=== PATIENT | male | born 1945 | race African-American/Black ===

== ENCOUNTER 2016-11-15 17:00 | Emergency (ER) | payer BC, OTHER ==
[~2016-11-15] VITALS: Ht 172.7 cm; Wt 95.0 kg
[~2016-11-15 17:00] MED LIST: ASPI81TA82 PO; ATEN-102 PO; METF1000 PO; METF500 PO
[2016-11-15 17:02] VITALS: BP 147/72; PULSE 50; RESP 20; TEMP 98.4; O2SAT 95
[2016-11-15] MEDS ORDERED: METF500T PO (17:04)
[2016-11-15] MEDS ORDERED: ATEN50TA PO (17:04)
--- NOTE | 2016-11-15 18:40 | PD ---
HPI Chief Complaint: Injury Time Seen by Provider: 18:40 Travel History International Travel<30 days: No Contact w/Intl Traveler<30days: No Traveled to known affect area: No History of Present Illness HPI 71-year-old male presents to the emergency Department with complaint of pain to his left biceps area since yesterday after trying to catch a large, heavy piece of wood while it was falling. Reports decreased range of motion and strength to the affected extremity. Denies paresthesias, loss of sensation to the affected extremity. Denies fever, vomiting. Has not taken any medications or drainage from minutes to relieve the symptoms. Symptoms are moderate in severity. History of hypertension and diabetes type 2. Has no other medical complaints. No other modifying factors or associated signs and symptoms. PFSH Past Medical History Cardiovascular Problems: Yes (HTN) Diabetes: Yes (METFORMIN) Patient Takes Glucophage: Yes Diminished Hearing: No Hypertension: Yes Past Surgical History Surgical History: No Previous Surgery Social History Alcohol Use: No Tobacco Use: No Substance Use: No Allergies-Medications (Allergen,Severity, Reaction): Coded Allergies: No Known Allergies (Unverified , 11/15/16) Reported Meds & Prescriptions Reported Meds & Active Scripts Active Reported Metformin (Metformin HCl) 500 Mg Tab 500 Mg PO BIDPC With meals Atenolol 50 Mg Tab 50 Mg PO DAILY Review of Systems Except as stated in HPI: all other systems reviewed are Neg Physical Exam Narrative GENERAL: Well-nourished, well-developed -[place]ish male patient, in no acute distress; afebrile, nontoxic-appearing SKIN: Warm and dry. HEAD: Atraumatic. Normocephalic. EYES: Pupils equal and round. No scleral icterus. No injection or drainage. ENT: Mucosa pink and moist. Airway patent. NECK: Trachea midline. CARDIOVASCULAR: Regular rate. RESPIRATORY: No accessory muscle use. GASTROINTESTINAL: Rounded. MUSCULOSKELETAL: Left antecubital area with ecchymosis and tenderness on palpation; tenderness on palpation to the biceps area and skin appears wrinkled to the tendon area; unable to verify with hook test; decreased pronation and supination at the wrist secondary to pain; with decreased range of motion at the elbow with flexion and extension. Left upper extremity is supple and non- tense with 2+ radial pulses and sensory intact. No obvious deformities. No clubbing. No cyanosis. No edema. NEUROLOGICAL: Awake and alert. Oriented 3. No obvious cranial nerve deficits. Motor grossly within normal limits. Normal speech. PSYCHIATRIC: Appropriate mood and affect; insight and judgment normal. Data Data Last Documented VS Vital Signs Date Time Temp Pulse Resp B/P Pulse Ox O2 Delivery O2 Flow Rate FiO2 11/15/16 17:07 16 Room Air 11/15/16 17:02 98.4 50 147/72 95 Orders Mri Joint Elbow W/O Contrast (11/15/16 ) Elbow, Complete (4 Vws) (11/15/16 18:40) MDM Medical Decision Making Medical Screen Exam Complete: Yes Emergency Medical Condition: Yes Medical Record Reviewed: Yes Differential Diagnosis Bicep tendon rupture, bicep muscle tear, Elbow dislocation, elbow fracture, elbow sprain Narrative Course 71-year-old male with injury to the left bicep area. I'm concerned bicep tendon rupture. Dr. Mcdowell evaluated the patient and he agrees to my plan of care. Left elbow x-ray ordered. MRI of the left elbow to rule out bicep tendon rupture ordered. 1899: Report given to Chava Reeder PA-C. See his note for final disposition. Zoila Heller [facility] Nov 15, 2016 18:40
--- NOTE | 2016-11-15 19:25 | RADRPT ---
EXAM DATE/TIME: 11/15/2016 18:55 [facility] COMPARISON: No previous studies available for comparison. INDICATIONS : Left elbow pain. Patient hurt arm yesterday trying to catch something. MEDICAL HISTORY : None. SURGICAL HISTORY : None. ENCOUNTER: Initial ACUITY: 2 days PAIN SCORE: 10/10 LOCATION: Left elbow. FINDINGS: 4 views left elbow. Prominent enthesophytes noted about the elbow. Alignment within normal limits. Ve rtical linear lucency at the medial epicondyle likely interface with enthesophyte. No other evidence of fracture. No evidence of joint effusion. No joint narrowing. CONCLUSION: Prominent bone spurs about the elbow at tendinous attachments. Likely spur at the medial epicondyle v ersus less likely nondisplaced fracture in this location. No other evidence of fracture. Jean-Claude Capone MD on November 15, 2016 at 19:20 Board Certified Radiologist. This report was verified electronically.
--- NOTE | 2016-11-15 19:58 | RADRPT ---
EXAM DATE/TIME: 11/15/2016 19:12 [facility] COMPARISON: No previous studies available for comparison. INDICATIONS : Biceps tendon tear MEDICAL HISTORY : Hypertension. Diabetes mellitus type 2. SURGICAL HISTORY : None. ENCOUNTER: Initial ACUITY: 1 day PAIN SCORE: 0/10 LOCATION: left arm pain TECHNIQUE: Multiplanar, multisequence MRI examination was performed without contrast. FINDINGS: BONE/CARTILAGE: Bone marrow signal is homogeneous. Articular cartilage signal is within normal limits. TENDONS: Rupture of the distal biceps tendon at its insertion. 5 centimeters retraction. Diffuse surrounding e adarsh indicating an acute finding. Distal triceps tendon is intact. Proximal common extensor and commo n flexor tendons are intact. LIGAMENTS: The radial collateral and ulnar collateral ligament complexes are intact. MISCELLANEOUS: No evidence of joint effusion. Ulnar nerve is within normal limits. CONCLUSION: Acute rupture of the biceps tendon at its insertion with 5 cm retraction. Jean-Claude Capone MD on November 15, 2016 at 19:54 Board Certified Radiologist. This report was verified electronically.
[2016-11-15] MEDS ORDERED: HYDR-3533 PO (20:20)
--- NOTE | 2016-11-15 20:25 | PD ---
Physical Exam Date Seen by Provider: Nov 15, 2016 Time Seen by Provider: 20:22 Data Data Last Documented VS Vital Signs Date Time Temp Pulse Resp B/P Pulse Ox O2 Delivery O2 Flow Rate FiO2 11/15/16 17:07 16 Room Air 11/15/16 17:02 98.4 50 147/72 95 Orders Mri Joint Elbow W/O Contrast (11/15/16 ) Elbow, Complete (4 Vws) (11/15/16 18:40) Ice/Cold Pack (11/15/16 20:18) Splint Or Brace Apply/Monitor (11/15/16 20:18) Acetamin-Hydrocod 325-5 Mg ([place] 5-325 (11/15/16 20:30) MDM Medical Record Reviewed: Yes Supervised Visit with LEIGHA: Yes Interpretation(s) Last 24 hours Impressions Elbow X-Ray 11/15/16 1840 Signed Impressions: Service Date/Time: Tuesday, November 15, 2016 18:55 - CONCLUSION: Prominent bone spurs about the elbow at tendinous attachments. Likely spur at the medial epicondyle versus less likely nondisplaced fracture in this location. No other evidence of fracture. Jean-Claude Capone MD Elbow MRI 11/15/16 0000 Signed Impressions: Service Date/Time: Tuesday, November 15, 2016 19:12 - CONCLUSION: Acute rupture of the biceps tendon at its insertion with 5 cm retraction. Jean-Claude Capone MD Differential Diagnosis MDM: High Differential diagnoses: Fracture, sprain, strain, dislocation, contusion, neurovascular injury Narrative Course Patient has a complete rupture of the biceps tendon on the left elbow. He has 5 cm of retraction. The patient is placed in a sling given Lortab 5 a grams by mouth for pain here. He is advised to follow-up with workman's comp. He will need to see an orthopedist. He is aware that at his age there is a likelihood that they will not repair this but he should get a second opinion. This is left biceps rupture Diagnosis Primary Impression: Rupture of left biceps tendon Qualified Code: S46.212A - Rupture of left biceps tendon, initial encounter Patient Instructions: General Instructions Departure Forms: Tests/Procedures, Work Release Special Instructions: No use of the left arm at work until released by orthopedics. Additional Instruction: Rest. Sling. Ice. Lortab for pain. Follow-up with Workmen's Compensation as soon as possible. Follow-up with an orthopedist as soon as possible. Return to the ER for emergencies. No use of left arm until released by orthopedics. Med/Other Pt SpecificInfo: Prescription(s) given Scripts Hydrocodone-Acetaminophen (Lortab)5-325 Mg Tab1 Tab PO Q6H PRN (PAIN) #20 TAB Prov:Joseph Mcdowell MD 11/15/16 Disposition: 01 DISCHARGE HOME Condition: Stable Chava Reeder Nov 15, 2016 20:25
[2016-11-15] MEDS ORDERED: ACETAMINOPHEN/HYDROcodone 325 MG/5 MG TAB PO ONE (20:30)
== END 2016-11-15 20:59 | disposition home or self-care (01) ==
LOC: NEPD 17:00
DX: S46.212A Strain of muscle, fascia and tendon of other parts of biceps, left arm, initial encounter (principal); M77.9 Enthesopathy, unspecified; I10 Essential (primary) hypertension; E11.9 Type 2 diabetes mellitus without complications; W22.8XXA Striking against or struck by other objects, initial encounter
CPT/HCPCS: 73080; 73221; 99284